=== PATIENT | female | born 1955 | race Caucasian/White ===

== ENCOUNTER 2016-08-15 | Emergency (ER) | payer BC ==
[~2016-08-15] VITALS: Ht 162.6 cm; Wt 81.0 kg
[~2016-08-15] MED LIST: ASPI-664 PO; ATEN-51 PO
[2016-08-15 00:06] VITALS: Ht 162.6 cm; Wt 81.0 kg
--- NOTE | 2016-08-15 02:11 | ERA ---
ER Documentation Chief Complaint Date/Time DATE: 08/15/16 TIME: 02:09 Chief Complaint dificulty of urination x 5 days, pelvic pain HPI 61 otherwise healthy female complaining of dysuria and hematuria 1 week. Patient has had a urinary tract infection before and this feels the same. Patient has no other complaints at this time. Patient denies dizziness, abdominal pain, change in bowel habits. Denies back pain. Denies any hepatobiliary diseases. ROS All systems reviewed and are negative except as per history of present illness. Medications Home Meds Active Scripts Nitrofurantoin Monohyd Macrocr* (Macrobid*) 100 Mg Capsr, 100 MG PO HS for 7 Days, CAP Prov:FATIMAH BIRCH PA-C 08/15/16 Reported Medications Aspirin* (Aspirin* EC) 81 Mg Tablet.dr, 81 MG PO DAILY, TAB 02/05/16 Atenolol* (Atenolol*) 25 Mg Tablet, 75 MG PO DAILY, #90 TAB 02/05/16 Allergies Allergies: Coded Allergies: No Known Allergy (Unverified , 02/05/16) PMhx/Soc Medical and Surgical Hx: pt denies Medical Hx, pt denies Surgical Hx History of Surgery: No Anesthesia Reaction: No Hx Neurological Disorder: No Hx Respiratory Disorders: No Hx Cardiac Disorders: Yes (HTN) Hx Psychiatric Problems: No Hx Miscellaneous Medical Probl: No Hx Alcohol Use: No Hx Substance Use: No Hx Tobacco Use: No Smoking Status: Never smoker Physical Exam Vitals Vital Signs Date Time Temp Pulse Resp B/P Pulse Ox O2 Delivery O2 Flow Rate FiO2 08/15/16 00:06 98.3 69 20 151/90 98 Physical Exam Const: Obese 61-year-old female Head: Atraumatic Eyes: Normal Conjunctiva ENT: Normal External Ears, Nose and Mouth. Neck: Full range of motion..~ No meningismus. Resp: Clear to auscultation bilaterally Cardio: Regular rate and rhythm, no murmurs Abd: Soft, non tender, non distended. Normal bowel sounds. Moderate suprapubic tenderness. Skin: No petechiae or rashes Back: No midline or flank tenderness. No CVA tenderness. Ext: No cyanosis, or edema Neur: Awake and alert Psych: Normal Mood and Affect Results 24 hrs Laboratory Tests Test 08/15/16 02:56 Bedside Urine pH (LAB) 6.5 Bedside Urine Protein (LAB) 2+ Bedside Urine Glucose (UA) Negative Bedside Urine Ketones (LAB) Negative Bedside Urine Blood 2+ Bedside Urine Nitrite (LAB) Positive Bedside Urine Leukocyte Esterase (L 3+ Procedures/MDM Patient is being evaluated for chief complaint of dysuria and hematuria. Patient has moderate suprapubic tenderness. Urine dip was obtained to evaluate for infection. Urine dip is suggestive of urinary tract infection. Most likely diagnosis is acute cystitis with hematuria. We will go ahead and discharge with Macrobid 100 mg twice daily for 7 days. Patient denies any hepatobiliary or renal disorders. Patient has taken this medication before with no adverse side effects. Will give patient discharge instructions with return precautions. Departure Diagnosis: Primary Impression: UTI (urinary tract infection) Qualified Code: N30.01 - Acute cystitis with hematuria Additional Impression: Hemorrhagic cystitis Condition: Stable Additional Instructions: Follow up with your PCP within the next 1-3 days for a more thorough evaluation and a possible referral to a specialist. Return the the emergency department immediately if symptoms worsen or change. If you have any questions regarding medications, ask your pharmacist or us before you leave. If any adverse reactions occur while taking your medications, discontinue the treatment and return to the emergency department immediately. Take your medications as directed, and complete the entire course of treatment. FATIMAH BIRCH PA-C August 15, 2016 02:11
[2016-08-15 02:55] LABS: URINE BLOOD (Dip) POC 2+ (NEGATIVE)
[2016-08-15] MEDS ORDERED: NITR-58 PO (03:00)
[2016-08-15 03:16] VITALS: BP 173/99; PULSE 68; RESP 18
== END 2016-08-15 03:17 | disposition home or self-care (01) ==
LOC: FTE
DX: N30.01 Acute cystitis with hematuria (principal); I10 Essential (primary) hypertension; Z79.82 Long term (current) use of aspirin
CPT/HCPCS: 81003; Z7502; 99283

== ENCOUNTER 2018-05-05 07:51 | Day surgery (SDC) | payer BC ==
[2018-05-05] VITALS (14 sets, daily range): BP systolic 119–152; BP diastolic 80–94; PULSE 80–96; RESP 11–20; Ht 154.9 cm; Wt 81.2 kg
[~2018-05-05] VITALS: Ht 154.9 cm; Wt 81.2 kg
[~2018-05-05 07:51] MED LIST changes: -ASPI-664 PO; +ASPI-817 PO; +LIDOCAINE 2% (SDV) 5 ML INJ ONE; +NITR-58 PO; +SEVOFLURANE 15 MIN ONE
[2018-05-05] MEDS ORDERED: FLUO20CA38 PO (08:48)
[2018-05-05] MEDS ORDERED: FAMO20TA18 PO (08:49)
[2018-05-05] MEDS ORDERED: AMLO5TAB4 PO (08:49)
[2018-05-05] MEDS ORDERED: OMEP20CA16 PO (08:49)
[2018-05-05] MEDS ORDERED: PROPOFOL 20 ML ONE (10:26)
[2018-05-05] MEDS ORDERED: ROPIVACAINE 0.5 % 30 ML VIAL ONE (10:26)
[2018-05-05] MEDS ORDERED: ETOMIDATE 20 MG INJ ONE (10:26)
[2018-05-05] MEDS ORDERED: FENTAnyl 50 MCG/ML VIAL ONE (10:35)
[2018-05-05] MEDS ORDERED: KETOROLAC 30 MG INJ ONE (10:47)
[2018-05-05] MEDS ORDERED: CEFAZOLIN 1 GM INJ ONE (10:50)
[2018-05-05] MEDS ORDERED: POLYMYXIN/BACITRACIN 1L IRRIG IRR ONE (10:51)
--- NOTE | 2018-05-05 11:12 | PAC ---
Date/Time of Note Date/Time of Note DATE: 05/05/18 TIME: 11:12 Post-Anesthesia Notes Post-Anesthesia Note Last documented vital signs Vital Signs Date Temp Pulse Resp B/P (MAP) Pulse Ox O2 O2 Flow FiO2 Time Delivery Rate 05/05/18 98.2 82 18 135/69 100 11:12 05/05/18 80 16 119/81 97 Room Air 09:09 (94) Activity: WNL Respiratory function: WNL Cardiovascular function: WNL Mental status: Baseline Pain reasonably controlled: Yes Hydration appropriate: Yes Nausea/Vomiting absent: Yes BRINDA HDZ DO May 05, 2018 11:12
--- NOTE | 2018-05-05 11:12 | OPR ---
Date/Time of Note Date/Time of Note DATE: 05/05/18 TIME: 11:10 Operative Report Procedure Date: May 05, 2018 Preoperative Diagnosis right groin mass Postoperative Diagnosis same Operation/Procedure Performed 1. right groin mass excision 9 cm mass 9 cm incision 2. localized adjacent tissue transfer with the use of skin flaps 18 sq cm defect of right groin Surgeon see signature line Tanner Rotary Drum Continuous Process none Anesthesia Type: general Estimated Blood Loss: 0 - 10 ml's Transfusion none Specimen right groin mass Grafts/Implants none Complications none Pt Condition Post Procedure: stable Indications This is a 63-year-old female with a right groin mass. She required surgical exc ision of her right groin mass. Risks alternatives benefits and percent were discussed with the patient. Potential complications including but not limited to bleeding infection pain wound dehiscence recurrence of mass and need for additional surgeries were discussed the patient. Patient expressed understanding consents to the operation. Procedure Description Patient taken to the OR and prepped and draped in usual sterile fashion. Surgical time was performed. IV antibiotics given. Elliptical incision was made with a 15 blade over the right groin mass. Dissection with cautery was carried onto the mass and the mass was circumferentially excised. Good hemostasis status. Due to the tissue defect localized adjacent to his transfer with use of skin flaps was performed. Multilayer closure with interrupted 3-0 Vicryl and skin haresh. A tap block was provided by the anesthesiologist. Dry dressings were applied. Christina LUX May 05, 2018 11:12
--- NOTE | 2018-05-05 11:25 | PAC ---
Date/Time of Note Date/Time of Note DATE: 05/05/18 TIME: 11:24 Post-Anesthesia Notes Post-Anesthesia Note Last documented vital signs Vital Signs Date Temp Pulse Resp B/P (MAP) Pulse Ox O2 O2 Flow FiO2 Time Delivery Rate 05/05/18 98.2 75 15 130/65 100 11:18 05/05/18 80 16 119/81 97 Room Air 09:09 (94) Activity: WNL Respiratory function: WNL Cardiovascular function: WNL Mental status: Baseline Pain reasonably controlled: Yes Hydration appropriate: Yes Nausea/Vomiting absent: Yes BRINDA HDZ DO May 05, 2018 11:25
[2018-05-05] MEDS ORDERED: HYDROmorphONE 1 MG/5 ML IV SYRINGE IV PRN ×2 (11:30)
[2018-05-05] MEDS ORDERED: HYDROCODONE/APAP (5/325) TAB PO ONE (11:30)
[2018-05-05] MEDS ORDERED: LABETALOL HCL 20MG INJ IV PRN (11:30)
[2018-05-05] MEDS ORDERED: hydrALAzine 20 MG INJ IV PRN (11:30)
--- NOTE | 2018-05-05 12:25 | NUR ---
gauze dressing on rt groin; c/d/i vss pain 0/10 family updated pt endorsed to NOLVIA Field, charge nurse
== END 2018-05-05 13:12 | disposition home or self-care (01) ==
LOC: SDS 07:51
PROVIDERS: ATTEND Surgery
DX: D17.1 Benign lipomatous neoplasm of skin and subcutaneous tissue of trunk (principal)
CPT/HCPCS: 14001; 88307; J0690; J1885; J2795; J3010; Z7512; Z7610